=== PATIENT | female | born 2000 | race Caucasian/White ===

== ENCOUNTER 2024-01-01 15:50 | Observation (INO) | payer MEDICAID ==
[2024-01-01 16:35] LABS: Urine Bacteria FEW /hpf (None Seen); Urine Blood Negative /uL (Negative); Urine Clarity HAZY (Clear); Urine Color Yellow (Yellow); Urine Mucus FEW (None Seen); Urine Protein, UAD TRACE (Negative); Urine Specific Gravity 1.029 (1.001-1.035); Urine WBC 20 /hpf (0 - 5); Urine pH 6.5 (5.0-8.0)
[2024-01-01 16:47] LABS: Protein, Urine 27.1 mg/dL (0.0-11.9)
[2024-01-01 16:49] LABS: Amphetamine Screen, Urine Neg (NEGATIVE); Barbiturate Scree,Urine Neg (NEGATIVE); Benzodiazephine Screen, Urine Neg (NEGATIVE); Cannabinoid Screen, Urine Neg (NEGATIVE); Cocaine Screen, Urine Neg (NEGATIVE); Opiate Scree,Urine Neg (NEGATIVE); Phencyclidine Screen, Urine Neg (NEGATIVE)
[2024-01-01 16:50] LABS: Creatinine, Urine 107.73 mg/dL (30.0-125.0); Urine Protein/Creatinine Ratio 0.25
[2024-01-01 17:12] LABS: Basophils # (auto) 0 10 ^3/uL (0-0.2); Eosinophils # (auto) 0.1 10 ^3/uL (0-0.8); Eosinophils % (auto) 0.8 % (0.0-7.0); Hemoglobin 9.6 g/dL (12.2-16.2); Lymphocytes # (auto) 1.3 10 ^3/uL (0.4-5.4); Monocytes # (auto) 1.1 10 ^3/uL (0-1.3); Nucleated Red Blood Cells % 0.1 %
[2024-01-01 17:13] LABS: Basophils % (auto) 0.3 % (0.0-2.0); Hematocrit 31.5 % (36.0-46.0); Lymphocytes % (auto) 11.3 % (10.0-50.0); Mean Corpuscular Hemoglobin 20.1 pg (28.0-32.0); Mean Corpuscular Hgb Conc. 30.5 g/dL (32.0-36.0); Mean Corpuscular Volume 65.8 fL (80.0-100.0); Monocytes % (auto) 9.7 % (0.0-12.0); Neutrophils # (auto) 8.9 10 ^3/uL (1.6-8.6); Neutrophils % (auto) 77.9 % (37.0-80.0); Red Blood Cells 4.78 10^6/uL (4.0-5.20); Red Cell Distribution Width 17.5 % (11.8-14.3); White Blood Cell 11.4 10^3/uL (4.4-10.8)
[2024-01-01 17:28] LABS: Albumin 3.7 g/dL (3.2-4.8); Alkaline Phosphatase 67 U/L (46-116); Anion Gap 6 (5-15); Aspartate Aminotransferase 11 U/L (13-40); BUN/Creatinine Ratio 12.5 (10.0-20.0); Bilirubin, Total 0.3 mg/dL (0.2-1.0); Blood Urea Nitrogen 5 mg/dL (9-23); Calcium 8.8 mg/dL (8.7-10.4); Carbon Dioxide 23 mmol/L (20-30); Chloride 109 mmol/L (98-107); Glucose 85 mg/dL (74-106); Potassium 3.5 mmol/L (3.5-5.1); Sodium 138 mmol/L (136-145); Total Protein 6.4 g/dL (5.7-8.2); Uric Acid 2.8 mg/dL (3.1-7.8)
[2024-01-01 17:30] LABS: Alanine Aminotransferase < 9 U/L (7-40)
[2024-01-01 17:31] LABS: Partial Thromboplastin Time 29.1 SEC (24.5-34.5); Prothrombin Time 10.5 sec (9.3-11.8)
[2024-01-01] MEDS ORDERED: RIZA10TA12 PO (19:08)
[2024-01-01] MEDS ORDERED: PREN-96 PO (19:08)
== END 2024-01-01 20:25 | disposition home or self-care (01) ==
LOC: LDRP 15:50
PROVIDERS: ADMIT Obstetrics & Gynecology; ATTEND Obstetrics & Gynecology
DX: O21.2 Late vomiting of pregnancy (principal); O26.852 Spotting complicating pregnancy, second trimester; O26.892 Other specified pregnancy related conditions, second trimester; M54.9 Dorsalgia, unspecified; R07.9 Chest pain, unspecified; R51.9 Headache, unspecified; H53.8 Other visual disturbances; R06.02 Shortness of breath; Z3A.24 24 weeks gestation of pregnancy
CPT/HCPCS: 36415; 59025; 80053; 80307; 81001; 81002; 82570; 84156; 84550; 85025; 85610; 85730; 94760; G0378

== ENCOUNTER 2024-02-02 09:00 | Observation (INO) | payer MEDICAID ==
[~2024-02-02 09:00] MED LIST: PREN-96 PO; RIZA10TA12 PO
[2024-02-02] MEDS ORDERED: ASPI-543 PO (09:47)
== END 2024-02-02 10:18 | disposition home or self-care (01) ==
LOC: LDRP 09:00 → UNDOADMOB 09:00 → LDRP 09:19
PROVIDERS: ADMIT Obstetrics & Gynecology; ATTEND Obstetrics & Gynecology
DX: O60.03 Preterm labor without delivery, third trimester (principal); O26.873 Cervical shortening, third trimester; O26.893 Other specified pregnancy related conditions, third trimester; M54.9 Dorsalgia, unspecified; Z3A.29 29 weeks gestation of pregnancy
CPT/HCPCS: 59025; 81002; G0378

== ENCOUNTER 2024-02-17 11:05 | Observation (INO) | payer MEDICAID ==
[~2024-02-17 11:05] MED LIST changes: +ASPI-543 PO
== END 2024-02-17 14:21 | disposition home or self-care (01) ==
LOC: LDRP 11:05 → UNDOADMOB 11:05 → LDRP 11:18
PROVIDERS: ADMIT Obstetrics & Gynecology; ATTEND Obstetrics & Gynecology
DX: O60.03 Preterm labor without delivery, third trimester (principal); O26.873 Cervical shortening, third trimester; Z3A.30 30 weeks gestation of pregnancy
CPT/HCPCS: 59025; 76815; 76818; 81002; G0378

== ENCOUNTER 2024-02-23 11:00 | Observation (INO) | payer MEDICAID ==
[~2024-02-23] VITALS: Ht 170.2 cm; Wt 81.6 kg
== END 2024-02-23 12:37 | disposition home or self-care (01) ==
LOC: UNDOADMOB 11:00 → LDRP 11:00
PROVIDERS: ADMIT Obstetrics & Gynecology; ATTEND Obstetrics & Gynecology
DX: O60.03 Preterm labor without delivery, third trimester (principal); O26.873 Cervical shortening, third trimester; Z3A.31 31 weeks gestation of pregnancy
CPT/HCPCS: 59025; 81002; G0378

== ENCOUNTER 2024-03-01 12:00 | Observation (INO) | payer MEDICAID ==
[~2024-03-01] VITALS: Ht 170.2 cm; Wt 68.0 kg
[2024-03-01] MEDS: BETAMETHASONE ACET (30mg/5ml) 5ml Vial 6mg/ml IM ONE (13:00)
[2024-03-01] MEDS: TERBUTALINE SULFATE 1 MG/ML 1ML VIAL SC SCH (13:34)
== END 2024-03-01 14:42 | disposition home or self-care (01) ==
LOC: LDRP 12:00 → UNDOADMOB 12:00 → LDRP 12:27
PROVIDERS: ADMIT Obstetrics & Gynecology; ATTEND Obstetrics & Gynecology
DX: O60.03 Preterm labor without delivery, third trimester (principal); O21.2 Late vomiting of pregnancy; O26.853 Spotting complicating pregnancy, third trimester; O26.873 Cervical shortening, third trimester; O26.893 Other specified pregnancy related conditions, third trimester; M54.50 Low back pain, unspecified; Z3A.32 32 weeks gestation of pregnancy
CPT/HCPCS: 59025; 76815; 81002; 94760; 96372; G0378; J3105

== ENCOUNTER 2024-03-08 13:07 | Observation (INO) | payer MEDICAID | END 2024-03-08 14:07 | disposition home or self-care (01) | LOC: LDRP 13:07 → UNDOADMOB 13:07 → LDRP 13:19 | PROVIDERS: ADMIT Obstetrics & Gynecology; ATTEND Obstetrics & Gynecology | DX: O60.03 Preterm labor without delivery, third trimester (principal); O26.873 Cervical shortening, third trimester; Z3A.33 33 weeks gestation of pregnancy | CPT/HCPCS: 59025; 81002; G0378 ==

== ENCOUNTER 2024-03-15 13:52 | Observation (INO) | payer MEDICAID | END 2024-03-15 14:42 | disposition home or self-care (01) | LOC: UNDOADMOB 13:52 → LDRP 13:52 | PROVIDERS: ADMIT Obstetrics & Gynecology; ATTEND Obstetrics & Gynecology | DX: O60.03 Preterm labor without delivery, third trimester (principal); Z3A.34 34 weeks gestation of pregnancy | CPT/HCPCS: 59025; 81002; 94760; G0378 ==

== ENCOUNTER 2024-03-21 08:44 | Observation (INO) | payer MEDICAID ==
[~2024-03-21 08:44] MED LIST changes: -RIZA10TA12 PO
== END 2024-03-22 13:49 | disposition home or self-care (01) ==
LOC: UNDOADMOB 03-22 13:03 → LDRP 03-22 13:03
PROVIDERS: ADMIT Obstetrics & Gynecology; ATTEND Obstetrics & Gynecology
DX: O60.03 Preterm labor without delivery, third trimester (principal); Z3A.36 36 weeks gestation of pregnancy
CPT/HCPCS: 59025; 81002; 94760; G0378

== ENCOUNTER 2024-03-28 16:30 | Observation (INO) | payer MEDICAID ==
[~2024-03-28] VITALS: Ht 170.2 cm; Wt 88.5 kg
[2024-03-28 17:33] VITALS: TEMP 100.1
[2024-03-28] MEDS: ACETAMINOPHEN 325 MG TAB PO ONE (17:33)
[2024-03-28] MEDS: LACTATED RINGER'S 1,000 ML IV ONE (17:35)
[2024-03-28 18:27] LABS: Urine Bacteria None Seen /hpf (None Seen)
[2024-03-28] MEDS: LACTATED RINGER'S 1,000 ML IV SCH (18:30)
[2024-03-28 18:37] LABS: Basophils # (auto) 0.1 10 ^3/uL (0-0.2); Basophils % (auto) 0.6 % (0.0-2.0)
[2024-03-28 18:38] LABS: Eosinophils # (auto) 0.1 10 ^3/uL (0-0.8); Eosinophils % (auto) 0.9 % (0.0-7.0); Lymphocytes # (auto) 1.3 10 ^3/uL (0.4-5.4); Lymphocytes % (auto) 13.5 % (10.0-50.0); Mean Corpuscular Hemoglobin 18.4 pg (28.0-32.0); Mean Corpuscular Hgb Conc. 30.8 g/dL (32.0-36.0); Mean Corpuscular Volume 59.8 fL (80.0-100.0); Monocytes % (auto) 10.9 % (0.0-12.0); Neutrophils % (auto) 74.1 % (37.0-80.0); Nucleated Red Blood Cells % 0.4 %; Red Blood Cells 4.34 10^6/uL (4.0-5.20); Red Cell Distribution Width 19.5 % (11.8-14.3); White Blood Cell 9.4 10^3/uL (4.4-10.8)
[2024-03-28 18:45] LABS: Urine Blood Negative /uL (Negative); Urine Clarity Clear (Clear); Urine Color Yellow (Yellow); Urine Mucus FEW (None Seen); Urine Protein, UAD TRACE (Negative); Urine Specific Gravity 1.025 (1.001-1.035); Urine Urobilinogen 2 mg/dL (Negative); Urine WBC 2 /hpf (0 - 5); Urine pH 6.5 (5.0-9.0)
[2024-03-28 18:47] LABS: Protein, Urine 15.5 mg/dL (0.0-11.9)
[2024-03-28 18:50] LABS: INR 0.99 (0.9-1.15); Partial Thromboplastin Time 25.6 SEC (24.5-34.5); Prothrombin Time 10.5 sec (9.3-11.8)
[2024-03-28 18:50] LABS: Creatinine, Urine 129.75 mg/dL (30.0-125.0); Urine Protein/Creatinine Ratio 0.12
[2024-03-28 18:52] LABS: Albumin 3.4 g/dL (3.2-4.8); Alkaline Phosphatase 110 U/L (46-116); Anion Gap 8 (5-15); Aspartate Aminotransferase 10 U/L (13-40); BUN/Creatinine Ratio 11.3 (10.0-20.0); Bilirubin, Total 0.4 mg/dL (0.2-1.0); Blood Urea Nitrogen 6 mg/dL (9-23); Calcium 9.2 mg/dL (8.7-10.4); Carbon Dioxide 21 mmol/L (20-30); Chloride 108 mmol/L (98-107); Glucose 86 mg/dL (74-106); Potassium 3.9 mmol/L (3.5-5.1); Sodium 137 mmol/L (136-145); Total Protein 5.8 g/dL (5.7-8.2); Uric Acid 4.2 mg/dL (3.1-7.8)
[2024-03-28 18:54] LABS: Alanine Aminotransferase < 9 U/L (7-40)
[2024-03-28 20:06] LABS: COVID19 ANTIGEN SOFIA FIA NEGATIVE (NEGATIVE); Rapid Influenza A Negative (Negative); Rapid Influenza B Negative (Negative)
[2024-03-28] MEDS ORDERED: DOCU-94 PO (20:15)
[2024-03-28] MEDS ORDERED: ASCO500T11 PO (20:15)
[2024-03-28] MEDS ORDERED: FER325T PO (20:15)
== END 2024-03-28 22:09 | disposition home or self-care (01) ==
LOC: LDRP 16:30
PROVIDERS: ADMIT Obstetrics & Gynecology; ATTEND Obstetrics & Gynecology
DX: O21.2 Late vomiting of pregnancy (principal); Z20.822 Contact with and (suspected) exposure to COVID-19; O36.8130 Decreased fetal movements, third trimester, not applicable or unspecified; O14.93 Unspecified pre-eclampsia, third trimester; O99.513 Diseases of the respiratory system complicating pregnancy, third trimester; J02.9 Acute pharyngitis, unspecified; R05.9 Cough, unspecified; O26.893 Other specified pregnancy related conditions, third trimester; M79.652 Pain in left thigh; M79.651 Pain in right thigh; Z3A.36 36 weeks gestation of pregnancy
CPT/HCPCS: 36415; 59025; 76705; 76818; 80053; 81001; 81002; 82570; 84156; 84550; 85025; 85610; 85730; 87426; 87804; 94760; 96360; 96361; G0378

== ENCOUNTER 2024-03-30 08:21 | Observation (INO) | payer MEDICAID ==
[~2024-03-30] VITALS: Ht 170.2 cm; Wt 86.2 kg
[~2024-03-30 08:21] MED LIST changes: +ASCO500T11 PO; +DOCU-94 PO; +FER325T PO
[2024-03-30 15:49] LABS: Protein, Urine 39.7 mg/dL (0.0-11.9)
[2024-03-30 15:52] LABS: Creatinine, Urine 204.31 mg/dL (30.0-125.0); Urine Protein/Creatinine Ratio 0.19
[2024-03-30 16:03] LABS: Protein, Urine 16.8 mg/dL (0.0-11.9)
== END 2024-03-30 17:02 | disposition home or self-care (01) ==
LOC: UNDOADMOB 14:55 → LDRP 14:55 → UNDODISOB 17:02
PROVIDERS: ADMIT Obstetrics & Gynecology; ATTEND Obstetrics & Gynecology
DX: O14.93 Unspecified pre-eclampsia, third trimester (principal); O62.9 Abnormality of forces of labor, unspecified; Z3A.36 36 weeks gestation of pregnancy
CPT/HCPCS: 59025; 76818; 81002; 82570; 84156; 94760; G0378

== ENCOUNTER 2024-04-02 10:15 | Inpatient (IN) | payer MEDICAID ==
[~2024-04-02] VITALS: Ht 170.2 cm; Wt 83.0 kg
[2024-04-02] MEDS ORDERED: BUTORPHANOL TARTRATE 2 MG/1 ML VIAL IV PRN ×2 (11:15)
[2024-04-02] MEDS ORDERED: LIDOCAINE 2%HCL (LOCAL ANESTH.) INJ 20ML MDV IJ PRN (11:15)
[2024-04-02] MEDS: LACTATED RINGER'S 1,000 ML IV SCH (11:45)
[2024-04-02 11:54] LABS: Basophils # (auto) 0 10 ^3/uL (0-0.2); Lymphocytes # (auto) 1.3 10 ^3/uL (0.4-5.4); Monocytes # (auto) 0.5 10 ^3/uL (0-1.3); Nucleated Red Blood Cells % 0.2 %
[2024-04-02 11:55] LABS: Basophils % (auto) 0.5 % (0.0-2.0); Eosinophils # (auto) 0.1 10 ^3/uL (0-0.8); Eosinophils % (auto) 0.6 % (0.0-7.0); Hematocrit 28.5 % (36.0-46.0); Hemoglobin 8.8 g/dL (12.2-16.2); Lymphocytes % (auto) 13.8 % (10.0-50.0); Mean Corpuscular Hemoglobin 18.4 pg (28.0-32.0); Mean Corpuscular Hgb Conc. 30.7 g/dL (32.0-36.0); Monocytes % (auto) 5.7 % (0.0-12.0); Neutrophils # (auto) 7.4 10 ^3/uL (1.6-8.6); Neutrophils % (auto) 79.4 % (37.0-80.0); Red Blood Cells 4.76 10^6/uL (4.0-5.20); Red Cell Distribution Width 19.6 % (11.8-14.3); White Blood Cell 9.3 10^3/uL (4.4-10.8)
[2024-04-02 12:00] LABS: Urine Bacteria FEW /hpf (None Seen); Urine Blood Negative /uL (Negative); Urine Clarity Turbid (Clear); Urine Color Yellow (Yellow); Urine Mucus FEW (None Seen); Urine Protein, UAD 1+ (Negative); Urine Specific Gravity 1.028 (1.001-1.035); Urine Urobilinogen 2 mg/dL (Negative); Urine WBC 24 /hpf (0 - 5); Urine pH 6.5 (5.0-9.0)
[2024-04-02] MEDS ORDERED: NALOXONE HCL 0.4 MG/ML VIAL IV ONE (12:00)
[2024-04-02] MEDS ORDERED: ROPIVACAINE 0.5% (5MG/ML) 20ML AMPULE IJ ONE (12:00)
[2024-04-02] MEDS ORDERED: ePHEDrine SULFATE 50 MG/ML AMP IV ONE (12:00)
[2024-04-02 12:10] LABS: INR 0.97 (0.9-1.15); Partial Thromboplastin Time 26.8 SEC (24.5-34.5); Prothrombin Time 10.3 sec (9.3-11.8)
[2024-04-02 12:12] LABS: Fern Testing Negative
[2024-04-02 12:17] LABS: Amphetamine Screen, Urine Neg (NEGATIVE); Benzodiazephine Screen, Urine Neg (NEGATIVE)
[2024-04-02 12:18] LABS: Barbiturate Scree,Urine Neg (NEGATIVE); Cannabinoid Screen, Urine Neg (NEGATIVE); Cocaine Screen, Urine Neg (NEGATIVE); Opiate Scree,Urine Neg (NEGATIVE); Phencyclidine Screen, Urine Neg (NEGATIVE)
[2024-04-02 12:19] LABS: Albumin 3.7 g/dL (3.2-4.8); Alkaline Phosphatase 132 U/L (46-116); Anion Gap 6 (5-15); Aspartate Aminotransferase 10 U/L (13-40); BUN/Creatinine Ratio 11.5 (10.0-20.0); Bilirubin, Total 0.6 mg/dL (0.2-1.0); Blood Urea Nitrogen 6 mg/dL (9-23); Carbon Dioxide 22 mmol/L (20-30); Chloride 109 mmol/L (98-107); Glucose 83 mg/dL (74-106); Potassium 3.7 mmol/L (3.5-5.1); Sodium 137 mmol/L (136-145); Total Protein 6.5 g/dL (5.7-8.2)
[2024-04-02 12:22] LABS: Alanine Aminotransferase < 9 U/L (7-40)
[2024-04-02] MEDS: ROPIVACAINE HCL 200 ML ONE (12:46)
[2024-04-02] MEDS: DERMOPLAST 60ML BOTTLE TOP PRN (12:48)
[2024-04-02] MEDS: WITCH HAZEL-GLYCERIN PAD TOP PRN (12:48)
[2024-04-02] MEDS: PHISODERM TOP SOLN 240ML BTL TOP PRN (12:49)
[2024-04-02] MEDS: PENICILLIN G POT 5MIL/D5 50ML 50 ML IV ONE (12:50)
[2024-04-02] MEDS: LACTATED RINGER'S 1,000 ML IV ONE (13:23)
[2024-04-02] MEDS: fentaNYL CITRATE 100 MCG/2 ML VL IV ONE ×2 (13:39→13:41)
[2024-04-02] MEDS: LACT. RINGERS/OXYTOCIN 20UNITS 1,000 ML IV SCH (14:18)
[2024-04-02] MEDS ORDERED: CARBOPROST TROMETHAMINE 250 MCG/1ML VIAL IM PRN (14:45)
[2024-04-02] MEDS ORDERED: ONDANSETRON HCL 4 MG/2 ML VIAL IV PRN (14:45)
[2024-04-02] MEDS ORDERED: miSOPROStol 100 mcg TAB SL PRN (14:45)
[2024-04-02] MEDS ORDERED: miSOPROStol 100 mcg TAB PR PRN (14:45)
[2024-04-02] MEDS: PENICILLIN G POTASSIUM 2,500,000 UNITS in D5W 5% 50 ML IV SCH (17:18)
[2024-04-02] MEDS: METHYLERGONOVINE MALEATE 0.2 MG/ML AMP IM PRN (21:21)
[2024-04-02] MEDS: LACT. RINGERS/OXYTOCIN 20UNITS 500 ML IV ONE ×2 (21:22→21:36)
[2024-04-02] MEDS ORDERED: DIPHENOXYLATE W/ATROPINE 2.5 MG TAB PO SCH (22:00)
[2024-04-02 23:00] VITALS: BP 119/75; PULSE 52; RESP 18; TEMP 97.7; O2SAT 98
[2024-04-03] MEDS ORDERED: ACETAMINOPHEN 325 MG TAB PO PRN (02:30)
[2024-04-03] MEDS ORDERED: ONDANSETRON HCL 4 MG/2 ML VIAL IV PRN (02:30)
[2024-04-03 03:30] VITALS: BP 117/77; PULSE 91; RESP 16; TEMP 98.2; O2SAT 96
[2024-04-03] MEDS ORDERED: IBUPROFEN 800 MG TAB PO SCH (06:00)
[2024-04-03 07:00] VITALS: BP 120/78; PULSE 87; RESP 18; TEMP 98.2; O2SAT 97
[2024-04-03] MEDS: IBUPROFEN 800 MG TAB PO SCH (07:03)
[2024-04-03 10:52] VITALS: BP 116/71; PULSE 87; RESP 16; TEMP 98.1; O2SAT 96
[2024-04-03 15:00] VITALS: BP 114/77; PULSE 82; RESP 18; TEMP 98.2; O2SAT 97
[2024-04-03 18:56] VITALS: BP 116/75; PULSE 78; RESP 16; TEMP 98.1; O2SAT 95
[2024-04-03] MEDS: DOCUSATE SOD 100 MG CAP PO SCH (21:39)
[2024-04-03 23:30] VITALS: BP 110/60; PULSE 63; RESP 14; TEMP 97.7; O2SAT 97
[2024-04-04 03:00] VITALS: BP 111/72; PULSE 67; RESP 18; TEMP 98.2; O2SAT 98
[2024-04-04] MEDS ORDERED: IBUP-1455 PO (06:03)
[2024-04-04 07:04] VITALS: BP 122/84; PULSE 83; RESP 18; O2SAT 97
[2024-04-04 07:07] LABS: RPR Non Reactive (Non Reactive)
[2024-04-05 18:06] LABS: Treponema pallidum Ab (FTA-Ab) Non Reactive (Non Reactive)
== END 2024-04-04 10:03 | disposition home or self-care (01) | DRG 560 ==
LOC: LDRP 10:15 → OBSVTOIN 11:24 → LDRP 04-03 09:12
PROVIDERS: ADMIT Obstetrics & Gynecology; ATTEND Obstetrics & Gynecology
PROC: 10E0XZZ Delivery of Products of Conception, External Approach (ICD-10-PCS; principal; 2024-04-02)
PROC: 0KQM0ZZ Repair Perineum Muscle, Open Approach (ICD-10-PCS; 2024-04-02)
PROC: 0UQMXZZ Repair Vulva, External Approach (ICD-10-PCS; 2024-04-02)
PROC: 3E0R3BZ Introduction of Anesthetic Agent into Spinal Canal, Percutaneous Approach (ICD-10-PCS; 2024-04-02)
PROC: 00HU33Z Insertion of Infusion Device into Spinal Canal, Percutaneous Approach (ICD-10-PCS; 2024-04-02)
DX: O42.92 Full-term premature rupture of membranes, unspecified as to length of time between rupture and onset of labor (principal); Z37.0 Single live birth; D64.9 Anemia, unspecified; O70.1 Second degree perineal laceration during delivery; O71.82 Other specified trauma to perineum and vulva; Z3A.37 37 weeks gestation of pregnancy; O90.81 Anemia of the puerperium
CPT/HCPCS: 36415; 59025; 59409; 62282; 80053; 80307; 81001; 81002; 84112; 85025; 85610; 85730; 86592; 86850; 86900; 86901; 86920; 94760; 96360; 96361; 96365; 96366; 96372; G0378; J2540; J2590; J7060

== ENCOUNTER 2024-11-30 10:17 | Day surgery (SDC) | payer OTHER ==
[~2024-11-30] VITALS: Ht 170.2 cm; Wt 88.5 kg
[2024-11-30] MEDS ORDERED: fentaNYL CITRATE 100 MCG/2 ML VL ONE (12:49)
[2024-11-30] MEDS ORDERED: PROPOFOL 10 MG/ML 20 ML IV ONE (12:49)
--- NOTE | 2024-11-30 13:11 | DVHHP2 ---
GI H&P Pre-Op Assessment Date: 11/30/24 Chief complaint: abdominal pain, nausea, vomiting,melena and blood in stool. HPI: per clinic note Past medical history: per clinic note Past surgical history: per clinic note Family history: per clinic note Physical exam: General: NAD, AAOX3 HEENT: PERRL, no scleral icterus, normal hearing, gums without lesions or bleeding, oropharynx clear without erythema or exudate. Neck: Supple without enlargement of the thyroid, or lymphadenopathy. Chest: Normal size and shape, no tenderness, lung renner clear to auscultation and percussion, nonlabored breathing. Heart: RRR, no murmur Abdomen: non-distended, no tenderness to palpation, +BS, no hepatosplenomegaly Extremities: no edema Neurological: CN II-XII intact, sensation intact in all extremities, 5+ strength in all extremities Skin: No rashes, No jaundice Assessment: - abdominal pain, nausea, vomiting,melena and blood in stool. Plan: - EGD - Colonoscopy - Risks (bleeding, infection, perforation, reaction to sedation medications and cardiopulmonary arrest) and benefit of the procedure were explained to patient. Patient agrees to undergo the procedure. LUIS FERNANDO CROOKS MD Nov 30, 2024 13:11
[2024-11-30 13:12] VITALS: PULSE 68; RESP 17; TEMP 97; O2SAT 95
--- NOTE | 2024-11-30 13:13 | DVHOP2 ---
Operative Report DATE OF OPERATION: 11/30/24 PROCEDURE: Upper Endoscopy. PREOPERATIVE INDICATION: The patient is a 24 -year-old female undergoing endoscopy for abdominal pain, nausea, vomiting and melena. POSTOPERATIVE DIAGNOSES: 1. Gastritis PROCEDURE PERFORMED BY: Ruben Delacruz SCOPE: Olympus videoendoscope. ASA CLASS: 3 PREOPERATIVE MEDICATIONS: MAC with Dr Peters PROCEDURE IN DETAIL: After obtaining an informed consent, the patient was placed on left lateral decubitus position. The patient was then sedated with the above medications. A bite block was placed between her teeth. The endoscope was then passed through the oropharynx, into the esophagus, and through the stomach and pylorus up to the second and third part of the duodenum. The duodenum was normal in appearance. There was gastritis. Gastric biopsies were obtained. The GEJ is normal in appearance at 35 cm. The esophagus was normal in appearance. The endoscope was then withdrawn. The patient tolerated the procedure well without difficulty. COMPLICATIONS : None SPECIMENS: Gastric biopsies DISPOSITION: D/C to home PLAN: 1. Await for biopsy result RUBEN DELACRUZ MD Nov 30, 2024 13:13
--- NOTE | 2024-11-30 13:15 | DVHDS2 ---
Physician Discharge Progress N Final Diagnosis: gastritis internal hemorrhoids Operations or Procedures: Operations or Procedures EGD with biopsy colonoscopy Condition on Discharge: Good Disposition: Home Discharge Instructions: Diet: Regular Activity: No Restrictions, As Tolerated Medications: resume previous home medications Follow Up Care: Discharge Statement: "Patient was advised to return to the ER or call 911 if any headaches, dizziness, shortness of breath, chest pain, abdominal pain, bleeding, fevers, or worsening of medical condition. Patient was counseled about treatment plan, medications, possible side effects, patientverbalized understanding. All questions were answered to the best of my ability. This discharge took greater then 30 minutes in planning, reviewing documentation, counseling the patient, and discussing with other team members." LUIS FERNANDO CROOKS MD Nov 30, 2024 13:15
--- NOTE | 2024-11-30 13:15 | DVHOP2 ---
Operative Report DATE OF OPERATION: 11/30/24 PROCEDURE: Colonoscopy. PREOPERATIVE INDICATION: The patient is a 24 -year-old female undergoing colonoscopy for abdominal pain and blood in stool. POSTOPERATIVE DIAGNOSES: 1. Internal hemorrhoids. PROCEDURE PERFORMED BY: Ruben Delacruz M.D. SCOPE: Olympus videocolonoscope. ASA CLASS: 3 PREOPERATIVE MEDICATIONS: MAC with Dr Peters PROCEDURE IN DETAIL: After obtaining an informed consent, the patient was placed on left lateral decubitus position. She was then sedated with the above medications. A rectal examination was performed that was normal. The colonoscope was then passed through the anus into the rectosigmoid and through the descending, transverse, and ascending colon up to the cecum with visualization of the appendiceal orifice, base of the cecum and the ileocecal valve. No mass or polyp was observed. There were internal hemorrhoids. The colonoscope was then withdrawn. The patient tolerated the procedure well without difficulty. WITHDRAWAL TIME: 6 minutes QUALITY OF THE PREP: [place] Bowel Prep score: 5 COMPLICATIONS : None SPECIMENS: None DISPOSITION: D/C to home PLAN: 1. Pt will f/u in GI clinic. RUBEN DELACRUZ MD Nov 30, 2024 13:15
[2024-11-30 13:30] VITALS: BP 108/67; PULSE 61; RESP 16; O2SAT 97
== END 2024-11-30 13:46 | disposition home or self-care (01) ==
LOC: GI 10:17
PROVIDERS: ATTEND Internal Medicine Gastroenterology
DX: K92.1 Melena (principal); D64.9 Anemia, unspecified; K29.50 Unspecified chronic gastritis without bleeding; B96.81 Helicobacter pylori [H. pylori] as the cause of diseases classified elsewhere; R10.9 Unspecified abdominal pain; K64.8 Other hemorrhoids; R11.2 Nausea with vomiting, unspecified; I10 Essential (primary) hypertension; E66.9 Obesity, unspecified; Z79.899 Other long term (current) drug therapy
CPT/HCPCS: 43239; 45378; 88305; 88312; 88342; J2704; J3010; J7030